=== PATIENT | male | born 1950 | race Caucasian/White ===

== ENCOUNTER 2025-05-20 16:06 | Emergency (ER) | payer MEDICARE, OTHER, SELFPAY ==
[2025-05-20 16:08] VITALS: BP 171/72; PULSE 77; RESP 16; TEMP 36.6; O2SAT 99; BMI 25.6
--- NOTE | 2025-05-20 16:55 | RAD_ITS ---
PROCEDURE: FINGER(S) MIN 2 VIEWS 05/20/2025 REASON FOR EXAM: INJURY TECHNIQUE: FINGER(S) MIN 2 VIEWS COMPARISON: None RAD/Finger(s) Min 2 Views IMPRESSION: Tuft fracture suspected of the distal tip of the 4th phalanx with mild associat ed soft tissue swelling. No radiographic foreign body. No acute dislocations. Reading Location: [id number]
--- NOTE | 2025-05-20 16:55 | EX.ED.UPPERE ---
HPI History of Present Illness Chief Complaint: Upper Extremity Injury Informant: patient Narrative Narrative: Patient is a 74 year old left handed male visiting from out of town ([facility]) presenting with right fourth finger injury. Patient was helping his [id number] move into a nursing facility today when he tripped over a call cord injuring his right fourth finger. States he cannot straighten it out all the way. Denies any significant pain. No other injuries reported. Came in for further evaluation. This occurred earlier this afternoon. Denies any associate numbness or tingling. No other complaints or concerns at this time. PFSH PFSH Allergy/AdvReac Type Severity Reaction Status Date / Time scallops AdvReac Abd Verified 05/20/25 16:10 cramps/diarrhea Social History Smoking Status: Never smoker ROS ROS ED Constitutional Constitutional ED: Denies chills or fever(s) Musculoskeletal Musculoskeletal: Reports other Details: right 4th finger pain, injury Integumentary Denies Abrasions or rash Neurologic Neurologic: Denies paresthesias or weakness Hematologic/Lymphatic Hematologic/Lymphatic: Denies easy bleeding or easy bruising EXAM Physical Exam Const Vital Signs: 05/20/25 16:08 Temperature 97.9 F Temperature Source Oral Pulse Rate 77 Respiratory Rate 16 Blood Pressure 171/72 H Blood Pressure Mean 105 Pulse Ox 99 Oxygen Delivery Method Room Air Positive well nourished and well developed General Appearance ED: well developed HEENT Reports moist mucous membranes normocephalic and atraumatic Neck full ROM Resp normal respiratory effort Cardio regular rate and regular rhythm Extremity Extremity Narrative: Mallet finger deformity to the distal right fourth finger. No other bony deformity. No significant tenderness. No swelling appreciated. Of the right hand and upper extremity range of motion otherwise normal Neuro oriented x3, no focal motor deficits and no sensory deficits noted Sensorium / Orientation: alert Motor Exam: muscle tone normal throughout Skin Lesions: no lesions Rashes: no rashes MDM MDM MDM Narrative Medical decision making narrative: Patient evaluated for injury to his right fourth finger. He has a mallet deformity. Suspect he has extensor tendon mechanism injury. Will obtain x-ray to rule out underlying fracture or dislocation. Patient will follow up out of town with orthopedics in [place]. X-ray of right vocation does not show any acute fracture. Radiology questioned the tuft fracture of the distal tip of the fourth phalanx with mild associate soft tissue edema. I do not agree with this read however will not change disposition. Patient be placed in a mallet splint and given instructions follow-up with orthopedics in [place]. Counseled importance of keeping the mallet splint on to hopefully allow for reattachment of the tendon. Instructed to alternate ibuprofen and Tylenol in the emergency room. Given return precautions. Discharged home in stable condition peer Discharge Plan Triage Chief Complaint: Upper Extremity Injury ED Provider: Missy Erwin Dx/Rx/DC Orders Clinical Impression: Mallet deformity of right ring finger Instructions: ED Mallet Finger Primary Care Provider: Care Physician,No Primary Referrals: Care Physician,No Primary [Primary Care Provider] - Activity Restrictions/Additional Instructions: Follow-up with orthopedics when you return to [place]. Wear the splint at all times to keep your finger in hyperflexion (extremely straight). May alternate ibuprofen and Tylenol as needed for pain. Ice the area as needed for swelling or bruising. Print Language: Urdu Disposition Disposition: Home, Self Care
[2025-05-20 17:53] VITALS: BP 158/78; PULSE 77; RESP 16; TEMP 36.6; O2SAT 99
== END 2025-05-20 18:00 | disposition home or self-care (01) ==
PROVIDERS: Emergency Provider Emergency Medicine; Visit Provider Emergency Medicine
DX: M20.011 Mallet finger of right finger(s) (principal); W19.XXXA Unspecified fall, initial encounter
CPT/HCPCS: 73140; 99282